=== PATIENT | female | born 1985 | race Caucasian/White ===

== ENCOUNTER 2017-01-04 15:17 | Day surgery (SDC) | payer OTHER ==
[2017-01-01 16:57] VITALS: BMI 21.7
[~2017-01-04] VITALS: Ht 167.6 cm; Wt 152.8 kg
[2017-01-04] VITALS (17 sets, daily range): BP systolic 95–140; BP diastolic 45–76; PULSE 86–102; RESP 13–24; Ht 167.6 cm; Wt 152.8 kg
[~2017-01-04 15:17] MED LIST: NO CURRENT MEDS
[2017-01-04] MEDS ORDERED: BUPR300T48 PO (16:19)
[2017-01-04] MEDS ORDERED: TRAZ100T15 PO (16:19)
[2017-01-04] MEDS ORDERED: POVIDONE IODINE 10% 28.4 GM OINT ONE (17:07)
[2017-01-04] MEDS ORDERED: LIDOCAINE 2% (SDV) 5 ML INJ ONE (17:13)
[2017-01-04] MEDS ORDERED: GLYCOPYRROLATE 0.4 MG INJ ONE ×3 (17:13→19:01)
[2017-01-04] MEDS ORDERED: ROPIVACAINE 0.5 % 30 ML VIAL ONE (17:13)
[2017-01-04] MEDS ORDERED: SUCCINYLCHOLINE CHLORIDE 100 MG/5 ML SYG IV ONE (17:13)
[2017-01-04] MEDS ORDERED: PROPOFOL 20 ML ONE (17:13)
[2017-01-04] MEDS ORDERED: NEOSTIGMINE 3 MG/3 ML SYRINGE ONE ×2 (17:13→19:01)
[2017-01-04] MEDS ORDERED: ROCURONIUM 50 MG INJ ONE ×2 (17:13→19:00)
[2017-01-04] MEDS ORDERED: CEFAZOLIN 1 GM INJ ONE ×2 (17:13→18:25)
--- NOTE | 2017-01-04 17:23 | HPN ---
Date/Time of Note Date/Time of Note DATE: 01/04/17 TIME: 17:23 Interval H&P Admission Note Pt. seen H&P reviewed: No system changes SHAWN ARTEAGA MD Jan 04, 2017 17:23
[2017-01-04] MEDS ORDERED: morphine 2 MG INJ IV PRN (17:30)
[2017-01-04] MEDS ORDERED: morphine 10 MG INJ IV PRN (17:30)
[2017-01-04] MEDS ORDERED: oxyCODONE 5 MG TAB PO ONE (17:30)
[2017-01-04] MEDS ORDERED: BUPIVACAINE 0.5% (SDV) 30 ML INJ ONE (17:47)
[2017-01-04] MEDS ORDERED: ONDANSETRON 4 MG INJ ONE (19:01)
[2017-01-04] MEDS ORDERED: METOCLOPRAMIDE 10 MG INJ ONE (19:01)
[2017-01-04] MEDS ORDERED: hydrALAzine 20 MG INJ IV PRN (20:00)
[2017-01-04] MEDS ORDERED: HYDROmorphONE (0.2 MG/ML) 10ML SYG IV PRN ×2 (20:00)
[2017-01-04] MEDS ORDERED: FENTAnyl 50 MCG/ML VIAL IV PRN ×2 (20:00)
[2017-01-04] MEDS ORDERED: EPHEDrine SULFATE 50 MG/5 ML SYG IV PRN (20:00)
[2017-01-04] MEDS ORDERED: morphine (1 MG/ML) 10ML SYRINGE IV PRN ×2 (20:00)
[2017-01-04] MEDS ORDERED: ONDANSETRON 4 MG INJ IV PRN (20:00)
[2017-01-04] MEDS ORDERED: MEPERIDINE 25 MG INJ IV PRN (20:00)
[2017-01-04] MEDS ORDERED: LABETALOL HCL 20MG INJ IV PRN (20:00)
[2017-01-04] MEDS ORDERED: DIPHENHYDRAMINE 50 MG INJ IV PRN (20:00)
[2017-01-04] MEDS ORDERED: MIDAZOLAM 1 MG/ML 2 ML INJ IV PRN (20:00)
[2017-01-04] MEDS ORDERED: METOCLOPRAMIDE 10 MG INJ IV PRN (20:00)
--- NOTE | 2017-01-04 21:01 | OPR ---
Date/Time of Note Date/Time of Note DATE: 01/04/17 TIME: 20:56 Operative Report Procedure Date: Jan 04, 2017 Preoperative Diagnosis 1.left ankle Maisonneuve fracture dislocation 2.left ankle posttraumatic synovitis Postoperative Diagnosis 1. Left ankle Maisonneuve fracture dislocation 2. left ankle loose body 3.left ankle post traumatic hemorrhagic synovitis 4.left ankle lateral talar dome chondral flap Operation Performed Left ankle arthroscopy with extensive debridement Left ankle arthroscopy with loose body removal Left ankle open reduction internal fixation of syndesmosis Surgeon: SHAWN ARTEAGA MD Anesthesia: general, other (Popliteal block with a saphenous block) Tourniquet Time: 42 min at 250 mmHg Estimated Blood Loss: minimal Complications: None Pt Condition Post Procedure: stable Disposition: PACU Indications Patient is a 31-year-old female who sustained a left ankle Maisonneuve fracture dislocation and had extensive medial clear space widening and this was indicated for surgery Procedure Description RISK NOTE: The patient was explained the risks and benefits of surgery in the patient's [place] language including, but not limited to infection, bleeding, loss of limb, loss of life, need for future surgery, risk of injury to blood vessels, nerves or tendons, risk of anesthesia. The patient acknowledges these risks and signed the surgical consent form. OPERATIVE NOTE: The patient was met in the preoperative holding area and the operative site was marked and confirmed with the patient and both consent. The patient was brought back in the operative theater, placed supine on the operative table and given preoperative anesthesia and preoperative regional block. The patient was then placed in a thigh ulloa and all bony prominences well padded and the arms were carefully padded. The leg was prepped and draped in a normal sterile fashion. Timeout was taken and all parties in the room agreed as the correct patient, procedure and correct extremity. The patient's superficial peroneal nerve was marked out in a standard fashion and then standard anteromedial and anterolateral portals were then marked out. Soft tissue distraction was placed across the joint measuring approximately 20 to 25 pounds of force. Then, using the typical anteromedial and anterolateral portals with care to avoid any injury to the neurovascular structures as well as the posterolateral portal was then used. A 21-point ankle exam was carried out. There was a extensive scar tissue and posttraumatic synovitis in the medial lateral and posterior gutter. There was a lateral hemorrhagic synovitic nodule in the lateral gutter as well as extensive synovitis in both the medial and posterior gutters as well. The hemorrhagic nodule was debrided and the posterior and medial gutter was extensively debrided and the anterior tibial scar tissue was also debrided. A 1.2 cm loose body was found in the posterior lateral aspect of the ankle which was removed successfully. A chondral flap was found over the lateral talar dome that did not probe down to bone and was debrided. After further thorough debridement, the ankle was thoroughly irrigated and the wounds were then closed with 4-0 nylon in a vertical mattress fashion. The ankle was then sterilely wrapped up and dressings were applied. The ankle was then reprepped and draped with the patient in a lateral position with all bony prominences well padded. Esmarch had been placed nonsterilely on the thigh. The patient was then reprepped and draped in a normal sterile fashion and new gloves, new gown and new instruments were used. Esmarch was then brought up to 275 mmHg. Incision was made over the lateral distal fibula and taken down to bone with care to avoid injuring the neurovascular structures. Proximally 1-1/2 cm above the ankle joint was identified to be the initial screw. Using a large tenaculum gentle reduction was applied from the medial malleolus to the posterior lateral fibula. A 4 hole Arthrex one third tubular plate was placed over the lateral fibula with a proximal screw and distal cancellus screw placed. A 3.5 fully threaded screw was placed across the syndesmosis in the second hole proximally 1.5 cm from the ankle joint across all 4 cortices. A titanium Arthrex tight rope was then placed into the third hole just above the syndesmotic screw. A manual exploration stress test within applied showing no talar tilt or medial clear space widening. The fibula was shortened out to be length and appropriate length alignment and rotation was achieved on the AP, mortise, oblique view of the ankle. The wound was irrigated thoroughly and closed in layers with 2-0 Vicryl followed by 3-0 Monocryl followed by 3-0 nylon in vertical mattress fashion. All wounds are dressed with Xeroform, Betadine ointment and 4 x 4's. Patient was placed in a well-padded short leg stent with 5 ABDs and web roll and bias. All sponge needle counts were correct SHAWN ARTEAGA MD Jan 04, 2017 21:01
[2017-01-04 22:18] LABS: THYROID STIMULATING HORMONE 1.35 MIU/L (0.465-4.680)
--- NOTE | 2017-01-05 08:46 | RADRPT ---
PROCEDURE: Left ankle CLINICAL INDICATION: Pain/trauma/ORIF. TECHNIQUE: 18 x-ray images were obtained intraoperatively during a left ankle ORIF procedure. COMPARISON: None available FINDINGS: 18 intraoperative images were obtained for localization during the ORIF of the left fibula. 43.7 se conds of fluoroscopy was used during the procedure. ORIF of distal fibula with a lateral plate and multiple screws. Alignment is anatomic. IMPRESSION: 18 intraoperative images and 43.7 seconds of fluoroscopy views for ORIF of left fibula. ORIF of distal fibula with lateral plate and multiple screws. Anatomic alignment .Bernardo Pizarro MD, Date Time Electronically viewed and signed by .Bernardo Pizarro MD, on 01/05/2017 08:45 .B/
[2017-01-08 15:32] LABS: TSH RECEPTOR ANTIBODY 1 (< OR = 16)
== END 2017-01-05 00:34 | disposition home or self-care (01) ==
LOC: SDS 15:17
PROVIDERS: ATTEND Orthopaedic Surgery
DX: S82.862D Displaced Maisonneuve's fracture of left leg, subsequent encounter for closed fracture with routine healing (principal); X58.XXXD Exposure to other specified factors, subsequent encounter; M65.872 Other synovitis and tenosynovitis, left ankle and foot; M24.072 Loose body in left ankle; F41.8 Other specified anxiety disorders
CPT/HCPCS: 27784; 29898; 73610; 82306; 84235; 84436; 84439; 84443; 84703; J0330; J0690; J2405; J2765; J2795; J3010; Z7512; Z7610; J2710

== ENCOUNTER 2017-09-22 12:41 | Day surgery (SDC) | payer OTHER ==
[2017-09-22] VITALS (8 sets, daily range): BP systolic 115–137; BP diastolic 52–94; PULSE 72–90; RESP 9–17; Ht 165.1 cm; Wt 157.7 kg
[~2017-09-22] VITALS: Ht 165.1 cm; Wt 157.7 kg
[~2017-09-22 12:41] MED LIST changes: +BUPR300T48 PO; +CEFAZOLIN 1 GM INJ ONE; +LIDOCAINE 2% (SDV) 5 ML INJ ONE; +ROCURONIUM 50 MG INJ ONE; +TRAZ100T15 PO
[2017-09-22] MEDS ORDERED: PROPOFOL 20 ML ONE (21:36)
[2017-09-22] MEDS ORDERED: ROCURONIUM 50 MG INJ ONE (21:36)
--- NOTE | 2017-09-22 21:37 | HPN ---
Date/Time of Note Date/Time of Note DATE: 09/22/17 TIME: 21:37 Interval H&P Admission Note Pt. seen H&P reviewed: No system changes SHAWN ARTEAGA MD Sep 22, 2017 21:37
[2017-09-22] MEDS ORDERED: morphine 10 MG INJ ONE (21:49)
[2017-09-22] MEDS ORDERED: DEXAMETHASONE 4 MG/ML 1 ML INJ ONE (21:50)
[2017-09-22] MEDS ORDERED: ONDANSETRON 4 MG INJ ONE (21:52)
[2017-09-22] MEDS ORDERED: morphine 2 MG INJ IV PRN (22:00)
[2017-09-22] MEDS ORDERED: ROPIVACAINE 0.5 % 30 ML VIAL ONE (22:18)
[2017-09-22] MEDS ORDERED: BACITRACIN/POLYMYXIN 28.35 GM OINT TOP ONE (22:20)
[2017-09-22] MEDS ORDERED: SUGAMMADEX SODIUM 200 MG/2 ML VIAL IV ONE (22:30)
[2017-09-22] MEDS ORDERED: MEPERIDINE 25 MG INJ ONE (22:52)
--- NOTE | 2017-09-22 22:53 | OPR ---
Date/Time of Note Date/Time of Note DATE: 09/22/17 TIME: 22:47 Operative Report Procedure Date: Sep 22, 2017 Preoperative Diagnosis Left ankle hardware pain s/p Maisonneuve fracture ORIF Postoperative Diagnosis Left ankle hardware pain s/p Maisonneuve fracture ORIF Left ankle syndesmotic pain Operation/Procedure Performed Left ankle hardware removal left ankle syndesmosis ORIF Surgeon Jhonny Arteaga MD Employee Relations Director none Anesthesia Type: general, other (local) Anesthesiologist: TAWANDA FAUSTIN Tourniquet Time: 27 min at 250 mmHg Estimated Blood Loss: minimal Transfusion none Specimen none Grafts/Implants 1 Arthrex titanium TightRope Tubes/Drains none Complications none Pt Condition Post Procedure: stable Disposition: PACU Indications Patient is a 32-year-old female who is now 9 months status post an ankle fracture open reduction internal fixation after Maisonneuve fracture. She has ongoing pain in her syndesmosis and pain related to her hardware. She is indicated for removal of hardware and screw and application of open reduction internal fixation of syndesmosis. Risk Note: Patient was explained the risks and benefits of surgery and the patient's [place] language including not limited to infection, bleeding, injury to blood vessels, nerves, ligaments or tendons. Risks of anesthesia, deep vein thrombosis and need for reduce future surgery. Patient acknowledged these risk by signing the surgical consent form. Procedure Description Patient was met in the preoperative holding area and the correct operative summary was confirmed with both patient and consent and marked appropriately. Patient was brought to the operative theater placed supine operative table given preoperative antibiotics. A nonsterile Esmarch was placed in the operative summary. Patient was then prepped and draped in the normal sterile fashion and timeout was taken all parties in room agreed was correct patient, extremity and procedure. Incision was made over the previous incision site localizing under fluoroscopy. Care was taken to avoid any injury to the neurovascular structures. 3.5 mm syndesmotic screw was then identified and removed without any complication. Then a Arthrex syndesmotic titanium tightrope was then drilled and placed in the exact same trajectory and spot while doing a finger reduction on the syndesmosis. The tight rope was tightened accordingly and shown to be in a well fixated position with the syndesmosis shown to be well reduced on both AP, lateral and oblique x-rays under fluoroscopy. Tourniquet was brought down to 27 minutes. Hemostasis was achieved. The wounds were irrigated thoroughly and closed in layers with 2-0 Vicryl followed by 3-0 Monocryl and 4-0 Monocryl. Wound is dressed with Steri- Strips Xeroform and patient was placed in a well-padded short leg splint. A local injection of 0.5% Naropin was injected of 20 cc in to the medial lateral aspect of the ankle. Patient was brought to the PACU in stable condition. At the case all sponge needle counts were correct. JHONNY ARTEAGA MD Sep 22, 2017 22:53
[2017-09-22] MEDS ORDERED: FENTAnyl 50 MCG/ML VIAL IV PRN ×3 (23:00)
[2017-09-22] MEDS ORDERED: ALBUTEROL 0.083% (NEB) 2.5 MG/3 ML AMP HHN PRN (23:00)
[2017-09-22] MEDS ORDERED: DIPHENHYDRAMINE 50 MG INJ IV PRN (23:00)
[2017-09-22] MEDS ORDERED: HYDROmorphONE (0.2 MG/ML) 10ML SYG IV PRN ×3 (23:00)
[2017-09-22] MEDS ORDERED: METOCLOPRAMIDE 10 MG INJ IV PRN (23:00)
[2017-09-22] MEDS ORDERED: MEPERIDINE 25 MG INJ IV PRN (23:00)
[2017-09-22] MEDS ORDERED: EPHEDrine SULFATE 50 MG/5 ML SYG IV PRN (23:00)
[2017-09-22] MEDS ORDERED: OXYCODONE/ACETAMINOPHEN (5/325) TAB PO PRN ×2 (23:00)
[2017-09-22] MEDS ORDERED: ONDANSETRON 4 MG INJ IV PRN (23:00)
[2017-09-22] MEDS ORDERED: MIDAZOLAM 1 MG/ML 2 ML INJ IV PRN (23:00)
[2017-09-22] MEDS ORDERED: hydrALAzine 20 MG INJ IV PRN (23:00)
[2017-09-22] MEDS ORDERED: LABETALOL HCL 20MG INJ IV PRN (23:00)
[2017-09-22] MEDS ORDERED: KETOROLAC 30 MG INJ IV PRN (23:00)
[2017-09-22] MEDS ORDERED: DIPHENHYDRAMINE 50 MG INJ ONE (23:08)
[2017-09-22] MEDS ORDERED: HYDROmorphONE (0.2 MG/ML) 10ML SYG IV ONE (23:13)
--- NOTE | 2017-09-23 06:42 | RADRPT ---
PROCEDURE: Left ankle ORIF surgical procedure CLINICAL INDICATION: Left ankle pain. Trauma. TECHNIQUE: Left ankle ORIF was performed. 6 images were utilized for localization intraoperatively . Fluoroscopy time: 22.1 seconds Number of images: 6 Radiation dose: 0.63 mGy COMPARISON: None available FINDINGS: Left ankle ORIF was performed. Multiple images are obtained for localization during the procedure pr ogress. Procedure was performed by Dr. Chakraborty. 22.1 seconds of fluoroscopy time was utilized for t he procedure. IMPRESSION: 1. Successful left ankle ORIF procedure. RPTAT: HDC .Faye Hammond MD, Date Time Electronically viewed and signed by .Faye Hammond MD, on 09/23/2017 06:42 .C/
== END 2017-09-23 00:31 | disposition home or self-care (01) ==
LOC: SDS 12:41
PROVIDERS: ATTEND Orthopaedic Surgery
DX: T84.84XA Pain due to internal orthopedic prosthetic devices, implants and grafts, initial encounter (principal); Y82.8 Other medical devices associated with adverse incidents; E66.01 Morbid (severe) obesity due to excess calories; Z68.43 Body mass index [BMI] 50.0-59.9, adult
CPT/HCPCS: 20680; 73600; 84703; 88300; J0690; J1100; J1170; J1200; J2175; J2270; J2405; J2795; J3010; Z7512; Z7610